=== PATIENT | male | born 2000 | race Two or more races ===

== ENCOUNTER 2023-03-12 15:02 | Outpatient (RCR) | payer MEDICAID, SELFPAY | END 2023-03-28 23:59 | disposition home or self-care (01) | LOC: CPTX 15:02 | PROVIDERS: PCP Physician Assistant; Referring Provider Nurse Practitioner Family; Visit Provider Nurse Practitioner Family | DX: Z53.9 Procedure and treatment not carried out, unspecified reason (principal) ==

== ENCOUNTER 2024-03-22 00:13 | Emergency (ER) | payer MEDICAID, SELFPAY ==
[2024-03-22 00:15] VITALS: BMI 19.0
[2024-03-22 00:34] VITALS: BP 126/64; PULSE 99; RESP 18; TEMP 36.6; O2SAT 100
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
== END 2024-03-22 01:44 | disposition left against medical advice (07) ==
PROVIDERS: Emergency Provider Emergency Medicine; PCP Physician Assistant
DX: S09.93XA Unspecified injury of face, initial encounter (principal); Y04.0XXA Assault by unarmed brawl or fight, initial encounter; Z53.29 Procedure and treatment not carried out because of patient's decision for other reasons
CPT/HCPCS: 99281

== ENCOUNTER → 2024-08-20 | Outpatient (CLI) | payer MEDICAID, SELFPAY ==
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
== END | disposition home or self-care (01) ==
LOC: SMRI 11:27
PROVIDERS: PCP Physician Assistant; Referring Provider Orthopaedic Surgery Orthopaedic Trauma; Visit Provider Orthopaedic Surgery Orthopaedic Trauma
DX: M75.101 Unspecified rotator cuff tear or rupture of right shoulder, not specified as traumatic (principal); M25.811 Other specified joint disorders, right shoulder
CPT/HCPCS: 73221